=== PATIENT | female | born 1930 | race Caucasian/White ===

== ENCOUNTER 2017-08-15 11:47 | Inpatient (IN) | payer MEDICARE, BC ==
[~2017-08-15] VITALS: Ht 175.3 cm; Wt 77.1 kg
[~2017-08-15 11:47] MED LIST: ALBU0.63 NEB; ASPI-482 PO; IPRA4AER IH; LEXAPRO10 MG PO; LISI10TA2 PO; SIMV20TA3 PO; TIOT18CA IH
[2017-08-15] MEDS ORDERED: ALBUTEROL SULFATE 2.5 MG/3 ML NEBU. NEB PRN (13:00)
[2017-08-15] MEDS ORDERED: FLUT100D IH (13:07)
[2017-08-15] MEDS ORDERED: CETI10TA22 PO (13:07)
[2017-08-15 13:10] VITALS: BP 137/57
[2017-08-15] MEDS ORDERED: CHOL10003 PO (13:21)
[2017-08-15 13:27] LABS: BASO % 0 % (0-3); EOS % 0 % (0-3); HEMATOCRIT 33.2 % (36.0-47.0); HEMOGLOBIN 11.1 g/dL (12.0-15.5); LYMPH # 0.5 x10^3/uL (1.0-4.8); LYMPH % 4 % (24-48); MEAN CORPUSCULAR HEMOGLOBIN 30 pg (25-35); MEAN CORPUSCULAR HGB CONC 34 g/dL (31-37); MEAN CORPUSCULAR VOLUME 91 fL (79-100); MONO # 1.3 x10^3/uL (0.0-1.1); MONO % 10 % (0-9); NEUT # 10.6 x10^3uL (1.8-7.7); NEUT % 85 % (31-73); PLATELET COUNT 247 x10^3/uL (140-400); RED BLOOD COUNT 3.65 x10^6/uL (3.50-5.40); RED CELL DISTRIBUTION WIDTH 13.2 % (11.5-14.5); WHITE BLOOD COUNT 12.4 x10^3/uL (4.0-11.0)
[2017-08-15 13:47] LABS: ALBUMIN 2.8 g/dL (3.4-5.0); ALBUMIN/GLOBULIN RATIO 0.7 (1.0-1.7); CALCIUM 9.1 mg/dL (8.5-10.1); CREATININE 1.6 mg/dL (0.6-1.0); GFR 30.6; POTASSIUM 3.7 mmol/L (3.5-5.1); TOTAL BILIRUBIN 1.1 mg/dL (0.2-1.0); TOTAL PROTEIN 7.1 g/dL (6.4-8.2)
[2017-08-15] MEDS: DOXYCYCLINE HYCLATE 100 MG TABLET PO SCH ×2 (14:51→21:28)
[2017-08-15] MEDS: cefTRIAXone IV Push 1 GM VIAL. IVP SCH (14:51)
[2017-08-15 15:34] VITALS: BP 127/52
[2017-08-15] MEDS: IPRATRPIUM/ALBUTEROL 0.5/2.5MG 3 ML NEBU. NEB SCH ×2 (15:36→21:14)
--- NOTE | 2017-08-15 15:58 | NUR ---
Patient was admitted from home to the service of Dr. Amezcua for pneumonia. Hospital policies and paperwork reviewed with patient. Orders received and reviewed. Patient monitor applied and patient noted to be hypoxic at 88% per SpO2 probe. Oxygen initiated at 2 lpm per NC. SL installed and lab work drawn per orders. MRSA swab sent as well. Box lunch ordered for patient. Fall risk, droplet and contact precautions put in place and patient oriented to room. Will continue to monitor.
[2017-08-15] MEDS ORDERED: NON FORMULARY ITEM (Albuterol Sulfate (Albuterol Sulfate Neb Soln) 1 VIAL) NEB PRN (18:00)
[2017-08-15] MEDS ORDERED: NON FORMULARY ITEM (Ipratropium/Albuterol Sulfate (Combivent Respimat Inhal) 4 GM) IH PRN (18:00)
[2017-08-15 18:15] VITALS: BP 145/55
[2017-08-15] MEDS ORDERED: NON FORMULARY ITEM (Fluticasone Propionate (Flovent 100MCG Diskus) 2 PUFF) IH SCH (21:00)
[2017-08-15] MEDS: BUDESONIDE 0.5 MG/2 ML NEBU NEB SCH (21:14)
[2017-08-15] MEDS: SIMVASTATIN 20 MG TABLET PO SCH (21:28)
[2017-08-15] MEDS: LACTOBACILLUS RHAMNOSUS GG 1 CAPSULE. PO SCH (21:28)
[2017-08-15 21:48] LABS: BACTERIA,URINE FEW /HPF (0-FEW); BILIRUBIN,URINE NEG (NEG); CLARITY,URINE CLOUDY; COLOR,URINE YELLOW; GLUCOSE,URINE NEG (NEG); NITRITE,URINE NEG (NEG); SQUAMOUS EPITHELIAL CELL,UR FEW /LPF; UROBILINOGEN,URINE 1 mg/dL (0.2 mg/dL)
[2017-08-15 21:49] LABS: HYALINE CASTS, URINE MANY /HPF
[2017-08-16 00:25] VITALS: BP 178/82
[2017-08-16 05:28] VITALS: BP_SYST 156; BP_SYST 183; BP_DIAS 61; BP_DIAS 64
[2017-08-16] MEDS: IPRATRPIUM/ALBUTEROL 0.5/2.5MG 3 ML NEBU. NEB SCH ×4 (05:31→20:33)
[2017-08-16 05:32] LABS: BASO % 0 % (0-3); EOS # 0.1 x10^3/uL (0.0-0.7); EOS % 1 % (0-3); HEMATOCRIT 29.5 % (36.0-47.0); HEMOGLOBIN 9.9 g/dL (12.0-15.5); LYMPH % 9 % (24-48); MEAN CORPUSCULAR HEMOGLOBIN 31 pg (25-35); MEAN CORPUSCULAR HGB CONC 34 g/dL (31-37); MEAN CORPUSCULAR VOLUME 91 fL (79-100); MONO # 1.3 x10^3/uL (0.0-1.1); MONO % 12 % (0-9); NEUT # 8.3 x10^3uL (1.8-7.7); NEUT % 77 % (31-73); PLATELET COUNT 230 x10^3/uL (140-400); RED BLOOD COUNT 3.22 x10^6/uL (3.50-5.40); RED CELL DISTRIBUTION WIDTH 13.3 % (11.5-14.5); WHITE BLOOD COUNT 10.7 x10^3/uL (4.0-11.0)
[2017-08-16 05:47] LABS: ALBUMIN 2.4 g/dL (3.4-5.0); ALBUMIN/GLOBULIN RATIO 0.6 (1.0-1.7); CALCIUM 8.7 mg/dL (8.5-10.1); CREATININE 1.4 mg/dL (0.6-1.0); GFR 35.7; POTASSIUM 3.7 mmol/L (3.5-5.1); TOTAL BILIRUBIN 0.7 mg/dL (0.2-1.0); TOTAL PROTEIN 6.4 g/dL (6.4-8.2)
[2017-08-16 05:52] LABS: INFLUENZA A PATIENT NEGATIVE (NEGATIVE); INFLUENZA B PATIENT NEGATIVE (NEGATIVE)
[2017-08-16] MEDS: BUDESONIDE 0.5 MG/2 ML NEBU NEB SCH ×2 (08:00→20:33)
[2017-08-16] MEDS: CITALOPRAM 20 MG TABLET. PO SCH (08:33)
[2017-08-16] MEDS: CHOLECALCIFEROL (VITAMIN D3) 1,000 UNIT TABLET PO SCH (08:33)
[2017-08-16] MEDS: LACTOBACILLUS RHAMNOSUS GG 1 CAPSULE. PO SCH ×2 (08:33→20:53)
[2017-08-16] MEDS: CETIRIZINE HCL 10 MG TABLET PO SCH (08:33)
[2017-08-16] MEDS: DOXYCYCLINE HYCLATE 100 MG TABLET PO SCH ×2 (08:33→20:53)
[2017-08-16] MEDS: ASPIRIN ENTERIC COATED 81 MG TABLET.DR. PO SCH (08:33)
[2017-08-16] MEDS: LISINOPRIL 10 MG TABLET PO SCH (08:35)
[2017-08-16] MEDS: CARVEDILOL 6.25 MG TABLET PO SCH ×2 (10:00→17:01)
[2017-08-16 12:02] LABS: FREE T4 1.25 ng/dL (0.76-1.46); THYROID STIM HORMONE (TSH) 0.951 uIU/mL (0.358-3.740)
--- NOTE | 2017-08-16 14:04 | PN ---
DATE: 08/16/2017 SUBJECTIVE: An 87-year-old female admitted with pneumonia as well as exacerbation of COPD. The patient is making fairly good progress with IV antibiotic therapy. OBJECTIVE: VITAL SIGNS: Blood pressure 190/71 (NC), respiratory rate 16, pulse 78, oxygen saturation good. GENERAL: The patient is alert and oriented. LUNGS: Diminished in the bases. CARDIOVASCULAR: Regular sinus rhythm, S1-S2. ABDOMEN: Soft, nontender. EXTREMITIES: No clubbing, cyanosis, nor edema. NEUROLOGIC: Intact. IMPRESSION: Pneumonia of unspecified etiology, exacerbation of chronic obstructive pulmonary disease, hypertensive urgency. Control blood pressure. Continue with IV antibiotic therapy. ARAVIND AMOS MD DR: JULIETH/diogo JOB#: [id number] / [id number]
[2017-08-16 14:13] VITALS: BP 124/57
[2017-08-16] MEDS: cefTRIAXone IV Push 1 GM VIAL. IVP SCH (14:18)
--- NOTE | 2017-08-16 14:29 | RAD ---
Chest, 2 views, 08/16/2017: History: Pneumonia Comparison is made to a study from 12/22/2014. The heart is at the upper limits of normal in size. Calcified mediastinal lymph nodes are present. There is calcific plaquing of the aorta. The pulmonary vascularity is normal. Bilateral apical pleural/parenchymal opacities are probably due to scarring. There are mild streaky basilar opacities, left greater than right compatible with atelectasis and/or scarring. No significant pleural fluid is seen. Mild spurring is present in the spine. IMPRESSION: 1. Borderline cardiomegaly and aortic atherosclerosis. 2. Mild bibasilar discoid atelectasis and/or scarring, left greater than right.
[2017-08-16 18:29] VITALS: BP 157/66
[2017-08-16 19:05] VITALS: BP 130/58
[2017-08-16] MEDS: SIMVASTATIN 20 MG TABLET PO SCH (20:53)
[2017-08-16 22:20] VITALS: BP 105/47
[2017-08-17 05:10] VITALS: BP 123/54
[2017-08-17] MEDS: IPRATRPIUM/ALBUTEROL 0.5/2.5MG 3 ML NEBU. NEB SCH ×4 (05:21→21:09)
[2017-08-17 05:53] LABS: CREATININE 1.2 mg/dL (0.6-1.0); GFR 42.6; POTASSIUM 3.9 mmol/L (3.5-5.1)
[2017-08-17 06:10] LABS: BASO # 0.1 x10^3/uL (0.0-0.2); BASO % 1 % (0-3); EOS # 0.3 x10^3/uL (0.0-0.7); EOS % 3 % (0-3); HEMATOCRIT 29.8 % (36.0-47.0); HEMOGLOBIN 10.1 g/dL (12.0-15.5); LYMPH # 1.2 x10^3/uL (1.0-4.8); LYMPH % 14 % (24-48); MEAN CORPUSCULAR HEMOGLOBIN 31 pg (25-35); MEAN CORPUSCULAR HGB CONC 34 g/dL (31-37); MEAN CORPUSCULAR VOLUME 91 fL (79-100); MONO % 12 % (0-9); NEUT # 5.9 x10^3uL (1.8-7.7); NEUT % 70 % (31-73); PLATELET COUNT 255 x10^3/uL (140-400); RED BLOOD COUNT 3.26 x10^6/uL (3.50-5.40); RED CELL DISTRIBUTION WIDTH 13.2 % (11.5-14.5); WHITE BLOOD COUNT 8.5 x10^3/uL (4.0-11.0)
[2017-08-17] MEDS: CARVEDILOL 6.25 MG TABLET PO SCH ×2 (08:00→17:02)
[2017-08-17] MEDS: ASPIRIN ENTERIC COATED 81 MG TABLET.DR. PO SCH (08:40)
[2017-08-17] MEDS: LACTOBACILLUS RHAMNOSUS GG 1 CAPSULE. PO SCH ×2 (08:40→20:10)
[2017-08-17] MEDS: CHOLECALCIFEROL (VITAMIN D3) 1,000 UNIT TABLET PO SCH (08:40)
[2017-08-17] MEDS: LISINOPRIL 10 MG TABLET PO SCH (08:40)
[2017-08-17] MEDS: CITALOPRAM 20 MG TABLET. PO SCH (08:40)
[2017-08-17] MEDS: DOXYCYCLINE HYCLATE 100 MG TABLET PO SCH ×2 (08:40→20:10)
[2017-08-17] MEDS: CETIRIZINE HCL 10 MG TABLET PO SCH (08:40)
[2017-08-17] MEDS: BUDESONIDE 0.5 MG/2 ML NEBU NEB SCH ×2 (09:31→21:09)
[2017-08-17 11:03] VITALS: BP 144/64
[2017-08-17] MEDS: cefTRIAXone IV Push 1 GM VIAL. IVP SCH (14:00)
[2017-08-17 15:00] VITALS: BP 151/71
--- NOTE | 2017-08-17 17:43 | NUR ---
Walked pt around unit with 2.5LNC, became short of breath, pt took a rest, walked back to pt's room, pt's O2 sat at 89% with 2.5LNC, deep breaths brought pt back up to mid 90s. Pt stated, "Sometimes I feel short of breath when I get up and walk, sometimes I don't." Pt currently resting in bed with no other complaints, family at bedside. Will CTM.
[2017-08-17 19:26] VITALS: BP 152/75
[2017-08-17] MEDS ORDERED: methylPREDNISolone SOD SUCC PF 40 MG/ML VIAL. IV ONE (19:30)
[2017-08-17] MEDS: SIMVASTATIN 20 MG TABLET PO SCH (20:10)
--- NOTE | 2017-08-17 22:40 | PN ---
DATE: 08/17/2017 SUBJECTIVE: The patient in with acute exacerbation of COPD, acute respiratory failure, still using some accessory muscles, still breathing fairly heavily. The patient otherwise says she is feeling a little bit better, but still receiving IV Solu-Medrol and aggressive pulmonary toilet. PHYSICAL EXAMINATION: VITAL SIGNS: Blood pressure 150/70, respiratory rate 24, pulse 98. She is afebrile. LUNGS: Still show some mild expiratory wheezes. Improved creatinine down to 1.2 and so forth; however, the patient continues on aggressive pulmonary toilet, IV antibiotic therapy and make further evaluation on her. IMPRESSION: Acute respiratory failure, acute exacerbation of chronic obstructive pulmonary disease, acute renal failure, ojmc-[id number] protein malnutrition. PLAN: As above. ARAVIND AMOS MD DR: JULIETH/diogo JOB#: [id number] / [id number]
[2017-08-17 23:00] VITALS: BP_SYST 142; BP_SYST 150; BP_DIAS 71
[2017-08-18] MEDS: IPRATRPIUM/ALBUTEROL 0.5/2.5MG 3 ML NEBU. NEB SCH ×4 (05:01→20:26)
[2017-08-18 06:39] VITALS: BP 156/74
[2017-08-18] MEDS: CITALOPRAM 20 MG TABLET. PO SCH (08:24)
[2017-08-18] MEDS: CHOLECALCIFEROL (VITAMIN D3) 1,000 UNIT TABLET PO SCH (08:25)
[2017-08-18] MEDS: LISINOPRIL 10 MG TABLET PO SCH (08:25)
[2017-08-18] MEDS: DOXYCYCLINE HYCLATE 100 MG TABLET PO SCH ×2 (08:25→21:12)
[2017-08-18] MEDS: CARVEDILOL 6.25 MG TABLET PO SCH ×2 (08:25→16:52)
[2017-08-18] MEDS: ASPIRIN ENTERIC COATED 81 MG TABLET.DR. PO SCH (08:25)
[2017-08-18] MEDS: CETIRIZINE HCL 10 MG TABLET PO SCH (08:25)
[2017-08-18] MEDS: LACTOBACILLUS RHAMNOSUS GG 1 CAPSULE. PO SCH ×2 (08:25→21:12)
[2017-08-18 10:47] VITALS: BP 168/67
[2017-08-18] MEDS: BUDESONIDE 0.5 MG/2 ML NEBU NEB SCH ×2 (11:00→20:26)
[2017-08-18] MEDS: methylPREDNISolone SOD SUCC PF 40 MG/ML VIAL. IV SCH (11:39)
[2017-08-18] MEDS: cefTRIAXone IV Push 1 GM VIAL. IVP SCH (13:58)
[2017-08-18 15:49] VITALS: BP 219/86
[2017-08-18 20:02] VITALS: BP 189/69
[2017-08-18] MEDS: SIMVASTATIN 20 MG TABLET PO SCH (21:12)
--- NOTE | 2017-08-18 22:14 | PN ---
DATE: 08/18/2017 SUBJECTIVE: An 87-year-old female with acute exacerbation of COPD as well as acute bronchitis. She is breathing a little bit easier, still very weak on her feet, receiving PT/OT, may require scale. OBJECTIVE: VITAL SIGNS: Blood pressure 168/67, respiratory 18, pulse 66, afebrile. GENERAL: The patient is on oxygen. LUNGS: Diminished, still some of the rhonchi noted, getting breathing treatments, give her another dose of Solu-Medrol, otherwise. CARDIOVASCULAR: Stable. ABDOMEN: Soft, nontender. EXTREMITIES: No clubbing, cyanosis, or edema. LABORATORY DATA: The patient's urine culture was negative as were blood cultures. IMPRESSION: We will continue to monitor her acute respiratory failure, acute exacerbation of chronic obstructive pulmonary disease, and acute bronchitis. ARAVIND AMOS MD DR: JULIETH/diogo JOB#: [id number] / [id number]
[2017-08-18 22:33] VITALS: BP 156/58
[2017-08-19 05:16] VITALS: BP 191/77
[2017-08-19] MEDS: IPRATRPIUM/ALBUTEROL 0.5/2.5MG 3 ML NEBU. NEB SCH ×2 (05:22→09:38)
[2017-08-19] MEDS: methylPREDNISolone SOD SUCC PF 40 MG/ML VIAL. IV SCH (08:24)
[2017-08-19] MEDS: LACTOBACILLUS RHAMNOSUS GG 1 CAPSULE. PO SCH (08:24)
[2017-08-19] MEDS: CARVEDILOL 6.25 MG TABLET PO SCH (08:25)
[2017-08-19] MEDS: CITALOPRAM 20 MG TABLET. PO SCH (08:25)
[2017-08-19] MEDS: DOXYCYCLINE HYCLATE 100 MG TABLET PO SCH (08:25)
[2017-08-19] MEDS: LISINOPRIL 10 MG TABLET PO SCH (08:25)
[2017-08-19] MEDS: CHOLECALCIFEROL (VITAMIN D3) 1,000 UNIT TABLET PO SCH (08:25)
[2017-08-19] MEDS: CETIRIZINE HCL 10 MG TABLET PO SCH (08:25)
[2017-08-19] MEDS: ASPIRIN ENTERIC COATED 81 MG TABLET.DR. PO SCH (08:25)
[2017-08-19] MEDS ORDERED: CARVEDILOL 12.5 MG TABLET PO SCH (08:30)
[2017-08-19] MEDS: BUDESONIDE 0.5 MG/2 ML NEBU NEB SCH (09:37)
[2017-08-19 11:19] VITALS: BP 202/77
[2017-08-19] MEDS ORDERED: amLODIPine BESYLATE 10 MG TABLET PO ONE (11:30)
[2017-08-19 11:37] VITALS: BP 202/77
[2017-08-19] MEDS ORDERED: PRED1TAB PO (13:08)
[2017-08-19] MEDS ORDERED: CARV12.52 PO (13:08)
--- NOTE | 2017-08-19 15:00 | NUR ---
Discharge Note: АНДРЕЙ BARRETT Discharge instructions and discharge home medications reviewed with Patient and a copy given. All questions have been answered and understanding verbalized. The following instructions and handouts were given: education regarding prednisone and coreg, discharge instructions Discontinued lines and drains: Peripheral IV intact. Patient discharged to Home w/services withFamily Membervia Wheelchair Prescription for Vitamin D3 also called in to [facility] for pt. Pt left with oxygen tank; [facility] was notified to set up home oxygen. Pt left unit with her own cane, bag, and robe.
--- NOTE | 2017-08-19 19:02 | PN ---
DATE: 08/19/2017 SUBJECTIVE: The patient in with acute exacerbation of COPD as well as acute respiratory failure, doing somewhat better, still very weak, difficulty mobilizing, requires assistance. Consequently looking at getting her some type of a scooter or some sort to help her mobilize better at home. OBJECTIVE: VITAL SIGNS: Blood pressure elevated 190/70 (NC), respiratory rate 18, pulse 71, afebrile. She is on 2 liters 96%, was doing a 6-minute walk. LUNGS: Diminished, particularly in the left lower lung base. CARDIOVASCULAR: Regular sinus rhythm. ABDOMEN: Soft, nontender. EXTREMITIES: No clubbing, cyanosis, or edema. NEUROLOGIC: Intact. LABORATORY DATA: Hemoglobin for today, white count pending as well as her chemistries are still pending for today. ARAVIND AMOS MD DR: JULIETH/diogo JOB#: [id number] / [id number]
--- NOTE | 2017-08-23 10:54 | DS ---
DATE OF DISCHARGE: 08/19/2017 HOSPITAL COURSE: An 87-year-old female came in through the office. She had pneumonia of unspecified etiology, exacerbation of COPD, and hypertensive urgency. We controlled her blood pressure, which had one time, it was upwards of 220/86. The patient made good progress during the rest of her hospitalization. White count came down. Hemoglobin was 10 and 29. The patient's chemistries, which showed the patient was also fairly dehydrated and she was negative for influenza. The patient's urine culture and blood cultures were negative, but the patient made excellent progress during the rest of her hospitalization. She was discharged home for followup and make further evaluation as an outpatient. IMPRESSION: Pneumonia of unspecified etiology, dehydration, acute renal failure, exacerbation of chronic obstructive pulmonary disease, swfu-qa-tthoolij protein malnutrition. Otherwise, we will continue to monitor patient as an outpatient. See MRAD, decreased activity. ARAVIND AMOS MD DR: JULIETH/diogo JOB#: [id number] / [id number]
== END 2017-08-19 15:00 | disposition home health service (06) | DRG 682 ==
LOC: ICU 12:35 → 1 SOUTH 08-18 06:28
PROVIDERS: ADMIT Family Medicine; ATTEND Family Medicine
DX: N17.9 Acute kidney failure, unspecified (principal); J18.9 Pneumonia, unspecified organism; J96.00 Acute respiratory failure, unspecified whether with hypoxia or hypercapnia; E44.0 Moderate protein-calorie malnutrition; J44.0 Chronic obstructive pulmonary disease with (acute) lower respiratory infection; J44.1 Chronic obstructive pulmonary disease with (acute) exacerbation; J20.9 Acute bronchitis, unspecified; I16.0 Hypertensive urgency; Z68.25 Body mass index [BMI] 25.0-25.9, adult
CPT/HCPCS: 36415; 71046; 80048; 80053; 80061; 81001; 82306; 82607; 82746; 83605; 83880; 84439; 84443; 85025; 86738; 87040; 87086; 87641; 87804; 94618; 94640; J0696; J2920; J7620; J7626

== ENCOUNTER 2018-07-04 15:33 | Inpatient (IN) | payer MEDICARE, BC ==
[~2018-07-04] VITALS: Ht 172.7 cm; Wt 76.4 kg
[~2018-07-04 15:33] MED LIST changes: +CARV12.547 PO; +CETI10TA22 PO; +CHOL10003 PO; +FLUT100D IH; +PRED1TAB PO
[2018-07-04] MEDS ORDERED: MELO7.5T29 PO (16:42)
[2018-07-04] MEDS ORDERED: MULT-650 PO (16:43)
[2018-07-04] MEDS ORDERED: MELA3TAB2 PO (16:43)
[2018-07-04 16:51] VITALS: BP 215/78
[2018-07-04] MEDS: MORPHINE SULFATE 2 MG/ML DISP.SYRIN. IV PRN ×2 (17:00→20:20)
[2018-07-04 17:52] VITALS: BP 191/66
[2018-07-04] MEDS ORDERED: NON FORMULARY ITEM (Albuterol Sulfate (Albuterol Sulfate Neb Soln) 1 VIAL) NEB PRN (18:00)
[2018-07-04] MEDS ORDERED: NON FORMULARY ITEM (Ipratropium/Albuterol Sulfate (Combivent Respimat Inhal) 4 GM) IH PRN (18:00)
[2018-07-04] MEDS ORDERED: cloNIDine HCL 0.1 MG TABLET PO PRN (18:00)
[2018-07-04] MEDS ORDERED: IPRATRPIUM/ALBUTEROL 0.5/2.5MG 3 ML NEBU. NEB PRN (18:15)
[2018-07-04] MEDS ORDERED: ALBUTEROL SULFATE 2.5 MG/3 ML NEBU. NEB PRN (18:15)
--- NOTE | 2018-07-04 18:45 | RAD ---
CHEST PA LATERAL CLINICAL INDICATION: Shortness of breath for a few days COMPARISON: 08/16/2017 FINDINGS: Heart is normal in size. Diffuse bilateral pulmonary nodules are seen. Lungs are hyperinflated. No pneumothorax or pleural effusion. Visualized bony thorax within normal limits. IMPRESSION: Bilateral pulmonary nodules highly concerning for metastatic disease. COPD. Electronically signed by: Kilo Ghosh DO (07/04/2018 6:40 PM) [facility]
[2018-07-04 19:09] VITALS: BP 196/68
[2018-07-04 19:13] LABS: CALCIUM 9.2 mg/dL (8.5-10.1); CREATININE 1.5 mg/dL (0.6-1.0); GFR 32.8; POTASSIUM 4.3 mmol/L (3.5-5.1); TOTAL BILIRUBIN 0.7 mg/dL (0.2-1.0)
[2018-07-04] MEDS: BUDESONIDE 0.5 MG/2 ML NEBU NEB SCH (20:05)
[2018-07-04] MEDS: MELATONIN 3 MG TABLET PO SCH (20:20)
[2018-07-04] MEDS: SIMVASTATIN 20 MG TABLET PO SCH (20:20)
[2018-07-04] MEDS ORDERED: NON FORMULARY ITEM (Fluticasone Propionate (Flovent 100MCG Diskus) 2 PUFF) IH SCH (21:00)
[2018-07-04 22:19] VITALS: BP 168/73
[2018-07-05] MEDS: MORPHINE SULFATE 2 MG/ML DISP.SYRIN. IV PRN ×4 (01:04→11:18)
[2018-07-05 05:48] VITALS: BP 165/66
[2018-07-05] MEDS: LISINOPRIL 10 MG TABLET PO SCH (08:58)
[2018-07-05] MEDS: MULTIVITAMIN with MINERAL TABLET. PO SCH (08:58)
[2018-07-05] MEDS: CITALOPRAM 20 MG TABLET. PO SCH (08:58)
[2018-07-05] MEDS: ASPIRIN 81 MG TAB.CHEW PO SCH (08:58)
[2018-07-05] MEDS: CETIRIZINE HCL 10 MG TABLET PO SCH (08:59)
[2018-07-05] MEDS ORDERED: MELOXICAM 7.5 MG TABLET PO SCH (09:00)
[2018-07-05] MEDS: BUDESONIDE 0.5 MG/2 ML NEBU NEB SCH ×2 (09:30→20:15)
--- NOTE | 2018-07-05 09:47 | RAD ---
EXAM: CT Chest without IV contrast CLINICAL HISTORY: SOB, hx of COPD, w/o do to Renal function COMPARISON: None. TECHNIQUE: CT of the chest without intravenous contrast. Axial, coronal and sagittal reformatted images were generated. ---PQRS compliance statement - One or more of the following individualized dose reduction techniques were utilized for this study: 1. Automated exposure control 2. Adjustment of the mA and/or kV according to patient size 3. Use of iterative reconstruction technique--- FINDINGS: Lack of intravenous contrast limits evaluation of solid organs, vasculature, and lymph nodes. Chest: The heart is not enlarged. No pericardial effusion. Coronary artery calcifications are seen. Aortic calcifications are seen. A pretracheal lymph node measures 1.4 x 1.1 cm. Other smaller mediastinal lymph nodes are seen. No definite hilar lymphadenopathy within the constraints of this noncontrast examination. No axillary lymphadenopathy. Diffuse distention of the distal esophagus with fluid. No pleural effusion or pneumothorax. Visualized thyroid is unremarkable. Numerous bilateral lung masses are seen, for example a 2.2 cm right lower lobe lung mass is seen. Given the multiplicity, suspicious for metastatic disease. Dependent opacities in the right lower lobe likely scarring/atelectasis. Associated right lower lobe pleural thickening. Visualized Upper abdomen: Hypodense left hepatic lobe lesion only partially visualized in too small to characterize. High density right upper pole right renal lesion is partially profiled, possibly hemorrhagic/proteinaceous cyst. Bones: Mild degenerative changes of spine are seen. IMPRESSION: 1. Numerous bilateral lung masses are seen, suspicious for metastatic disease 2. Mildly enlarged pretracheal lymph node measures up to 1.1 cm short axis. 3. Esophageal distention with fluid, may be seen with delayed motility/presbyesophagus or distal esophageal stenosis. Electronically signed by: Justin Jones MD (07/05/2018 9:42 AM) [facility]
[2018-07-05] MEDS ORDERED: fentaNYL 25MCG/HR 1 PATCH PATCH TD SCH (10:30)
[2018-07-05 10:44] VITALS: BP 169/64
--- NOTE | 2018-07-05 11:15 | RAD ---
CLINICAL HISTORY: + D Dimer COMPARISON: Chest radiograph 07/04/2018. TECHNIQUE: Radiopharmaceutical Dose: 5.5 mCi Tc99m MAA intravenous, 16 mCi Xe-133 Inhalation The patient was injected with tracer in the supine position and images obtained in the anterior, posterior, anterior oblique, posterior oblique, and lateral projections. A ventilation study was performed in the projection(s). FINDINGS: Normal symmetric perfusion is seen on the perfusion images. On the ventilation images, there is normal symmetric ventilation on the inspiration, equilibrium and washout phases. IMPRESSION: No evidence for acute pulmonary embolus. Radiation Dosimetry: The radiopharmaceutical used for this exam delivers approximately: 0.4 mSv/mCi (40 mRem/mCi) from Tc99m perfusion imaging. 0.2 mSv/mCi (20 mRem/mCi) from Tc99m DTPA aerosol imaging. 0.027 mSv/mCi (2.7 mRem/mCi) from Xe-133 ventilation imaging. Source: Effective dose RADAR Electronically signed by: Justin Jones MD (07/05/2018 11:10 AM) [facility]
--- NOTE | 2018-07-05 13:08 | RAD ---
EXAM: CT lumbar spine without IV contrast CLINICAL HISTORY:lower back pain, hx of back pain COMPARISON: CT chest 07/05/2018 TECHNIQUE: Helical CT was performed through the lumbar spine. Axial, coronal and sagittal reformatted images were generated. PQRS compliance statement - One or more of the following individualized dose reduction techniques were utilized for this study: 1. Automated exposure control 2. Adjustment of the mA and/or kV according to patient size 3. Use of iterative reconstruction technique FINDINGS: There is leftward curvature of the lumbar spine apex L2-3. Straightening of the normal cervical lordosis. No spondylolisthesis. Vertebral body heights are preserved. Severe L2-3, L3-4 and L4-5 intervertebral disc height loss with anterior posterior endplate osteophytes. Subchondral cystic changes seen. Dense atherosclerotic calcifications of aorta are seen. Aneurysmal dilatation of the infrarenal aorta measuring up to 4.9 cm just proximal to the iliac bifurcation. L1-L2: No significant central canal stenosis or neural foraminal narrowing. L2-L3: Diffuse circumferential disc bulge, ligamentum flavum hypertrophy and facet degenerative changes result in moderate central canal stenosis and mild bilateral neural foraminal narrowing. L3-L4: Moderate diffuse circumferential disc bulge and ligamentum flavum hypertrophy and facet degenerative changes result in moderate to severe central canal stenosis, moderate bilateral neural foraminal narrowing. L4-L5: There is diffuse circumferential disc bulge with ligamentum flavum hypertrophy, facet degenerative changes resulting in severe thecal sac deformity and moderate bilateral neural foraminal narrowing, left greater than right. L5-S1: Diffuse circumferential disc bulge with ligamentum flavum hypertrophy and facet degenerative changes results in severe central canal stenosis, severe left and moderate right neural foraminal narrowing. Numerous lytic lesions are seen throughout the osseous structures. Evaluation is limited given the degree of background osteopenia. A electroplating sales representative left sacral lesion measures 4.4 x 3.3 cm extending into the left S1 neural foramina. Additional lytic lesions into the iliac bones are seen. There may also be a lytic lesion within the L4 vertebral body. This can be further assessed by MRI as clinically indicated. The right kidney is atrophic. Right upper pole hyperdense lesion may be hemorrhagic/formation is nature. Cholecystectomy clips are seen. Apparent mild nodularity of the inferior pole the left kidney and hypodense lesion in the right lower pole kidney is seen. IMPRESSION: 1. No evidence for acute fracture 2. Multilevel degenerative changes as above. 3. Numerous lytic lesions are seen throughout the osseous structures, evaluation is limited given the degree of background osteopenia. These are most suspicious for metastatic disease. 4. Bilateral renal lesions are suspected although limited in evaluation on this noncontrast exam. Consider ultrasound or MRI evaluation if the patient cannot receive contrast for CT. Electronically signed by: Justin Jones MD (07/05/2018 1:03 PM) [facility]
--- NOTE | 2018-07-05 13:28 | RAD ---
CLINICAL HISTORY: BILAT LEG SWELLING LT > RT, LT KNEE SWELLING COMPARISON: None available. TECHNIQUE: Ultrasound evaluation of the bilateral lower extremity was performed from the groin to the upper calf with oshea scale, spectral and color doppler evaluation. FINDINGS: The common femoral vein, and femoral vein, including the saphenous-femoral junction are normal in appearance. Color and spectral Doppler evaluation demonstrates normal spontaneous flow, augmentation and phasicity. The popliteal vein and visualized calf veins also demonstrate normal compressibility and flow. IMPRESSION: 1. No evidence for bilateral lower extremity DVT. Electronically signed by: Justin Jones MD (07/05/2018 1:23 PM) [facility]
[2018-07-05] MEDS ORDERED: ZOLPIDEM 5 MG TABLET. PO PRN (14:00)
[2018-07-05 15:46] VITALS: BP 192/77
[2018-07-05] MEDS: MORPHINE SULFATE 4 MG/ML DISP.SYRIN. IV PRN ×2 (17:01→20:57)
[2018-07-05 19:39] VITALS: BP 139/64
[2018-07-05] MEDS: APIXABAN 2.5 MG TABLET PO SCH (20:47)
[2018-07-05] MEDS: DOCUSATE SODIUM 100 MG CAPSULE PO SCH (20:47)
[2018-07-05] MEDS: SIMVASTATIN 20 MG TABLET PO SCH (20:47)
[2018-07-05] MEDS: MELATONIN 3 MG TABLET PO SCH (20:47)
[2018-07-05 23:00] VITALS: BP 154/72
--- NOTE | 2018-07-05 23:17 | PN ---
DATE: SUBJECTIVE: An 88-year-old female came in initially with difficulty in breathing. The patient was noted on her CAT scan to have multiple mets from unknown etiology. The patient also complained of lower back pain. CT scan shows multiple lytic lesions in her back being controlled with oral meds as well as that of fentanyl patch. The patient was discussed at some length the serious situation about the lytic lesions of the metastatic disease. She will think it over, but by and large, she does not want to be aggressive with this situation and make further evaluation as noted otherwise. SUBJECTIVE: LUNGS: Diminished, some rhonchi noted, otherwise. CARDIOVASCULAR: Regular sinus rhythm. ABDOMEN: Soft, diffuse tenderness, no rebound or guarding. Positive bowel sounds, no hepatosplenomegaly. EXTREMITIES: No clubbing or cyanosis. Trace edema. Severe pain down the left leg, probably from the mets to her lumbar spine. PLAN: The patient will be kept comfortable and we will discuss with her family with a walk further down with her as far as treatment or hospice care. ARAVIND AMOS MD DR: JULIETH/diogo JOB#: [id number] / [id number]
[2018-07-06] MEDS: MORPHINE SULFATE 4 MG/ML DISP.SYRIN. IV PRN ×5 (02:48→20:02)
[2018-07-06 05:33] VITALS: BP 145/61
[2018-07-06 07:50] LABS: BASO % 1 % (0-3); EOS # 0.2 x10^3/uL (0.0-0.7); EOS % 4 % (0-3); HEMATOCRIT 28.1 % (36.0-47.0); HEMOGLOBIN 9.2 g/dL (12.0-15.5); LYMPH % 16 % (24-48); MEAN CORPUSCULAR HEMOGLOBIN 30 pg (25-35); MEAN CORPUSCULAR HGB CONC 33 g/dL (31-37); MEAN CORPUSCULAR VOLUME 91 fL (79-100); MONO # 0.6 x10^3/uL (0.0-1.1); MONO % 10 % (0-9); NEUT # 4.4 x10^3uL (1.8-7.7); NEUT % 70 % (31-73); PLATELET COUNT 175 x10^3/uL (140-400); RED BLOOD COUNT 3.08 x10^6/uL (3.50-5.40); RED CELL DISTRIBUTION WIDTH 16.1 % (11.5-14.5); WHITE BLOOD COUNT 6.3 x10^3/uL (4.0-11.0)
[2018-07-06 07:55] LABS: CALCIUM 9.4 mg/dL (8.5-10.1); CREATININE 1.4 mg/dL (0.6-1.0); GFR 35.6; POTASSIUM 4.5 mmol/L (3.5-5.1)
[2018-07-06] MEDS: PANTOPRAZOLE 40 MG TABLET. PO SCH (07:57)
[2018-07-06] MEDS: APIXABAN 2.5 MG TABLET PO SCH ×2 (07:57→20:02)
[2018-07-06] MEDS: DOCUSATE SODIUM 100 MG CAPSULE PO SCH ×2 (07:57→20:02)
[2018-07-06] MEDS: LISINOPRIL 10 MG TABLET PO SCH (07:58)
[2018-07-06] MEDS: MULTIVITAMIN with MINERAL TABLET. PO SCH (07:58)
[2018-07-06] MEDS: CITALOPRAM 20 MG TABLET. PO SCH (07:58)
[2018-07-06] MEDS: ASPIRIN 81 MG TAB.CHEW PO SCH (07:58)
[2018-07-06] MEDS: CETIRIZINE HCL 10 MG TABLET PO SCH (07:58)
[2018-07-06 10:23] VITALS: BP 132/56
[2018-07-06] MEDS: BUDESONIDE 0.5 MG/2 ML NEBU NEB SCH ×2 (11:19→20:25)
[2018-07-06 14:58] VITALS: BP 146/55
[2018-07-06 19:47] VITALS: BP 143/65
[2018-07-06] MEDS: SIMVASTATIN 20 MG TABLET PO SCH (20:02)
[2018-07-06] MEDS: MELATONIN 3 MG TABLET PO SCH (20:02)
--- NOTE | 2018-07-06 23:01 | PN ---
DATE: 07/06/2018 SUBJECTIVE: The patient is an 88-year-old female. She was initially admitted with severe pain and difficulty breathing. The patient was having trouble breathing. CAT scans demonstrate multiple nodules in her lungs consistent with metastatic cancer. The patient unfortunately also has severe pain in her lower back and CAT scans there demonstrate problem of a severe metastatic lytic lesions of her back. The patient was discussed multiple times possibility of going on hospice. They have been consulted already. OBJECTIVE: VITAL SIGNS: Blood pressure 132/56, respiratory rate 20, pulse 66, afebrile. GENERAL: The patient is alert and oriented. LUNGS: Diminished. Pain being controlled with IV morphine along with fentanyl patch as the pain is fairly severe from this cancer. Otherwise, lungs are diminished. CARDIOVASCULAR: Regular sinus rhythm. ABDOMEN: Soft, diffuse tenderness, some pain down her left leg. IMPRESSION: Metastatic cancer to the lungs and to the lumbosacral area and moderate protein malnutrition. PLAN: Continue to monitor the patient and accordingly make further evaluation and consult with [facility]. ARAVIND AMOS MD DR: JULIETH/diogo JOB#: [id number] / [id number]
[2018-07-06 23:24] VITALS: BP 151/64
[2018-07-07 05:40] VITALS: BP 133/62
[2018-07-07] MEDS: MORPHINE SULFATE 4 MG/ML DISP.SYRIN. IV PRN ×2 (08:05→11:33)
[2018-07-07] MEDS: BUDESONIDE 0.5 MG/2 ML NEBU NEB SCH (09:23)
[2018-07-07] MEDS: CITALOPRAM 20 MG TABLET. PO SCH (09:54)
[2018-07-07] MEDS: LISINOPRIL 10 MG TABLET PO SCH (09:54)
[2018-07-07] MEDS: DOCUSATE SODIUM 100 MG CAPSULE PO SCH (09:54)
[2018-07-07] MEDS: CETIRIZINE HCL 10 MG TABLET PO SCH (09:54)
[2018-07-07] MEDS: PANTOPRAZOLE 40 MG TABLET. PO SCH (09:55)
[2018-07-07] MEDS: APIXABAN 2.5 MG TABLET PO SCH (09:55)
[2018-07-07] MEDS: ASPIRIN 81 MG TAB.CHEW PO SCH (09:55)
[2018-07-07] MEDS: MULTIVITAMIN with MINERAL TABLET. PO SCH (09:55)
[2018-07-07 10:50] VITALS: BP 141/61
--- NOTE | 2018-07-07 13:25 | DS ---
DATE OF DISCHARGE: 07/07/2018 HISTORY OF PRESENT ILLNESS: This is an 88-year-old female patient, who was admitted with difficulty breathing. Her CT scan showed that she has multiple mets from unknown etiology. The patient also complained of lower back and a CT scan showed multiple lytic lesions in her back, being controlled with oral medication as well as fentanyl patch. Apparently, the patient did not want to be aggressive with her treatment and opted for comfort care and hospice and was discharged home on hospice. PHYSICAL EXAMINATION: GENERAL: On examining her today, she looked well and was clearly in no apparent respiratory distress, pale, but no jaundice or cyanosis. No lymphadenopathy, no thyromegaly. No jugular venous distension. No limb edema. VITAL SIGNS: Her heart rate was 64, blood pressure was 133/62, temperature was 97.9, respiratory rate was 20, and oxygen saturation was 95% on 2 liters of oxygen. HEAD, EYES, EARS, NOSE AND THROAT: Showed normocephalic and atraumatic. NECK: Supple. HEART: Showed normal first and second sounds. No gallop or murmur. CHEST: Clear to auscultation. No crepitation or rhonchi. ABDOMEN: Distended, soft, nontender. No guarding or rigidity. No organomegaly. All hernial orifices are intact. Bowel sounds normal. NEUROLOGIC: She is awake, alert, responding appropriately. All cranial nerves intact. She moves extremities without difficulty. She does complain of severe pain down the left lower extremity, probably from mets to her lumbar spine. LABORATORY DATA: As of yesterday showed a white cell count 6300, hemoglobin 9.2, hematocrit 28.1, MCV 91, and platelet count of 175,000. Serum sodium was 138, potassium 4.5, chloride 103, bicarbonate 30, anion gap of 5, BUN 18, creatinine 1.4, estimated GFR was 35 mL per minute. Her glucose 108, calcium was 9.4. Her D-dimer was high at 3.06. DISCHARGE MEDICATIONS: The patient was discharged home on hospice to continue on Protonix 40 mg once a day, Colace 100 mg twice a day, apixaban 2.5 mg twice a day, Ambien 5 mg at bedtime, multivitamin 1 tablet once a day, citalopram hydrobromide for Celexa 20 mg once a day, cetirizine for Zyrtec 10 mg once a day, lisinopril 10 mg once a day, aspirin 81 mg once a day, simvastatin 20 mg at bedtime, melatonin 6 mg at bedtime, Pulmicort 0.5 mg twice a day, albuterol sulfate 2.5 mg every 6 hours, DuoNeb 3 mL by nebulizer 4 times a day and clonidine 0.1 mg p.r.n. every 4 hours for systolic pressure more than 180. 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 Other medical problems include chronic obstructive pulmonary disease, rucf-[id number] protein malnutrition and anemia. SHELBIE ROSARIO MD DR: AMANDA/diogo JOB#: [id number] / [id number]
== END 2018-07-07 13:10 | disposition hospice, home (50) | DRG 181 ==
LOC: 1 SOUTH 15:33
PROVIDERS: ADMIT Family Medicine; ATTEND Family Medicine
DX: C78.00 Secondary malignant neoplasm of unspecified lung (principal); C79.51 Secondary malignant neoplasm of bone; E44.0 Moderate protein-calorie malnutrition; M54.5 Low back pain; C80.1 Malignant (primary) neoplasm, unspecified; J44.9 Chronic obstructive pulmonary disease, unspecified; D64.9 Anemia, unspecified; I10 Essential (primary) hypertension; F32.9 Major depressive disorder, single episode, unspecified; F41.9 Anxiety disorder, unspecified; M17.12 Unilateral primary osteoarthritis, left knee; M17.11 Unilateral primary osteoarthritis, right knee
CPT/HCPCS: 36415; 71046; 71250; 72131; 78582; 80048; 80053; 83880; 85025; 85379; 93970; 94640; 96374; A9540; A9558; J2270; J7626